=== PATIENT | female | born 1955 | race Caucasian/White ===

== ENCOUNTER 2017-12-31 17:57 | Emergency (ER) | payer OTHER, BC ==
[~2017-12-31] VITALS: Ht 157.5 cm; Wt 106.1 kg
[~2017-12-31 17:57] MED LIST: COZAAR25 MG PO; FOLIC ACID0.8 MG PO; NORVASC10 MG PO; PREDNISONE5 MG PO; RANITIDINE HCL150 MG PO; TRADJENTA5 MG PO; VICODIN,LORT1 TABLET PO; VITAMIN D400 INTUNI PO; ZESTRIL,PRINIVI40 MG PO
[2017-12-31 21:40] LABS: HEMOGLOBIN 13.9 G/DL (11.9-15.5); MCH 26.9 PG (29.0-34.0); MCHC 31.6 G/DL (30.0-36.0); MCV 85.1 FL (83-99); PLATELET COUNT 272 K/uL (156-360); RBC DIS.WIDTH-CV 14.8 % (11.8-14.6); RBC DIS.WIDTH-SD 45.8 % (39-53); RED BLOOD COUNT 5.17 M/uL (3.80-5.20); WHITE BLOOD COUNT 18.5 K/uL (4.1-10.2)
[2017-12-31 21:48] LABS: CHLORIDE 103 mEq/L (99-109); POTASSIUM 4.8 mEq/L (3.7-5.4); SODIUM 141 mEq/L (136-147)
[2017-12-31 21:50] LABS: GLUCOSE 144 mg/dL (70-99)
[2017-12-31 21:54] LABS: GFR ESTIMATE (CALCULATED) > 59 mL/min/; UREA NITROGEN (BUN) 24 mg/dL (9-23)
[2017-12-31] MEDS ORDERED: ROXICODONE5 MG PO (22:00)
[2017-12-31] MEDS ORDERED: ZITHROMAX Z-PA250 MG PO (22:00)
[2017-12-31 22:30] VITALS: BP 156/75
== END 2017-12-31 22:50 | disposition home or self-care (01) ==
LOC: EME 17:57
PROVIDERS: Physician Assistant
DX: S60.222A Contusion of left hand, initial encounter (principal); S80.01XA Contusion of right knee, initial encounter; S53.402A Unspecified sprain of left elbow, initial encounter; W01.0XXA Fall on same level from slipping, tripping and stumbling without subsequent striking against object, initial encounter; Y93.01 Activity, walking, marching and hiking; Y92.410 Unspecified street and highway as the place of occurrence of the external cause; R91.8 Other nonspecific abnormal finding of lung field; M31.1 Thrombotic microangiopathy; J44.9 Chronic obstructive pulmonary disease, unspecified; Z88.1 Allergy status to other antibiotic agents; Z88.2 Allergy status to sulfonamides
CPT/HCPCS: 71046; 73090; 73130; 73564; 80048; 85027; 93005; 99281; 99284